=== PATIENT | male | born 1930 | race Caucasian/White ===

== ENCOUNTER → 2017-02-27 | Outpatient (CLI) | payer MEDICARE, OTHER ==
[2017-02-27 14:34] LABS: BUN 26 mg/dL (7-18)
[2017-02-27 14:42] LABS: GFR (ESTIMATED) 58 ML/MIN (>60)
[2017-02-27 16:39] LABS: HEMOGLOBIN 13.1 g/dL (14.1-18.0); LYMPH % 25.8 % (10-50)
[2017-02-27 16:40] LABS: LYMPH # 1.9 K/mm3 (0.7-4.5)
== END ==
LOC: CARL-LAB 09:12
PROVIDERS: Emergency Medicine
DX: I10 Essential (primary) hypertension (principal); I25.10 Atherosclerotic heart disease of native coronary artery without angina pectoris; I48.0 Paroxysmal atrial fibrillation

== ENCOUNTER → 2017-03-22 | Outpatient (CLI) | payer MEDICARE, OTHER ==
[2017-03-22 14:28] LABS: PROSTATE-SPECIFIC AG SCREEEN 0.1 ng/mL (0.0-4.0)
[2017-03-22 15:00] LABS: GFR (ESTIMATED) 64 ML/MIN (>60)
[2017-03-28 16:41] LABS: Testosterone, Total, LC/MS 5.4 ng/dL (264.0-916.0)
== END ==
LOC: CARL-LAB 11:02
PROVIDERS: Urology
DX: C61 Malignant neoplasm of prostate (principal); N52.9 Male erectile dysfunction, unspecified; R35.0 Frequency of micturition; Z12.5 Encounter for screening for malignant neoplasm of prostate
CPT/HCPCS: G0103